=== PATIENT | male | born 1980 | race Caucasian/White ===

== ENCOUNTER 2020-01-28 21:02 | Emergency (ER) | payer BC, OTHER ==
--- NOTE | 2020-01-28 21:45 | EDM.PDOC ---
ED HPI GENERAL MEDICAL PROBLEM - General Stated Complaint: COVID Time Seen by Provider: 01/28/20 21:20 Source of Information: Reports: Patient History Limitations: Reports: No Limitations - History of Present Illness INITIAL COMMENTS - FREE TEXT/NARRATIVE: c/o exposure to COVID pt at a wedding last week, wedding was outside, reception interviewer inside, pt sat next to adult female who tested positive for COVID, pt does not know if she has had sxs, her family ( and 5-6 children) have tested positive as well pt works at [employer] in [place], on [employer] [place] and in close contact with others no children, lives with his father who is 69 yo pt and father are smokers only med is omeprazole qod, denies chronic health issues except cigs no fever or sigs today - Related Data Allergies Allergy/AdvReac Type Severity Reaction Status Date / Time shellfish derived Allergy Unknown unknown Verified 05/13/14 12:04 Home Meds: Home Meds Albuterol Sulfate [Albuterol Sulfate HFA] 1 - 2 puff IH Q2H PRN #1 [id number] 05/13/14 [Rx] Azithromycin [Z-Dayne] 250 mg PO DAILY #6 tablet 05/13/14 [Rx] ED ROS GENERAL - Review of Systems Review Of Systems: See Below Constitutional: Reports: No Symptoms HEENT: Reports: No Symptoms Respiratory: Reports: No Symptoms Cardiovascular: Reports: No Symptoms Endocrine: Reports: No Symptoms GI/Abdominal: Reports: No Symptoms : Reports: No Symptoms Musculoskeletal: Reports: No Symptoms Skin: Reports: No Symptoms Neurological: Reports: No Symptoms Psychiatric: Reports: No Symptoms Hematologic/Lymphatic: Reports: No Symptoms Immunologic: Reports: No Symptoms ED EXAM, GENERAL - Physical Exam Exam: See Below Exam Limited By: No Limitations General Appearance: Alert, WD/WN, No Apparent Distress Eye Exam: Bilateral Eye: Normal Inspection Ears: Normal External Exam, Normal Canal, Hearing Grossly Normal Nose: Normal Inspection, Normal Mucosa, No Blood Throat/Mouth: Normal Inspection, Normal Lips, Normal Teeth, Normal Gums, Normal Oropharynx, Normal Voice, No Airway Compromise Head: Atraumatic, Normocephalic Neck: Normal Inspection, Supple, Non-Tender, Full Range of Motion. No: Lymphadenopathy (R), Lymphadenopathy (L) Respiratory/Chest: No Respiratory Distress, Lungs Clear, Normal Breath Sounds, No Accessory Muscle Use, Chest Non-Tender Cardiovascular: Regular Rate, Rhythm, No Edema, No Gallop, No JVD, No Murmur, No Rub GI/Abdominal: Soft, Non-Tender, No Distention Back Exam: Normal Inspection, Full Range of Motion. No: CVA Tenderness (R), CVA Tenderness (L) Extremities: Normal Inspection, Normal Range of Motion, Non-Tender, No Pedal Edema Neurological: Alert, Oriented, CN II-XII Intact, Normal Cognition, Normal Gait, No Motor/Sensory Deficits Psychiatric: Normal Affect, Normal Mood Skin Exam: Warm, Dry, Intact, Normal Color, No Rash Lymphatic: No Adenopathy Course - Orders/Labs/Meds Orders: Active Orders 24 hr Category Date Time Status CORONAVIRUS COVID-19, [facility] Stat Lab 01/28/20 21:38 Ordered - Re-Assessments/Exams Free Text/Narrative Re-Assessment/Exam: 01/28/20 21:46 PE neg, no sxs, COVID test done, COVID precautions reviewed as per CDC guide lines Departure - Departure Time of Disposition: 21:39 Disposition: Home, Self-Care 01 Condition: Good Clinical Impression: Close exposure to COVID-19 virus - Discharge Information *PRESCRIPTION DRUG MONITORING PROGRAM REVIEWED*: Not Applicable *COPY OF PRESCRIPTION DRUG MONITORING REPORT IN PATIENT VEGA: Not Applicable Instructions: Droplet Precautions, Contact Precautions, Airborne Precautions Referrals: Howard Lawson MD [Primary Care Provider] - Forms: ED Return to Work/School Form Additional Instructions: Self quarantine for one week, longer if your COVID test is positive. Return to work in one week if your COVID test is negative and you are do not have symptoms. Use good handwashing. Maintain 6' social distancing. Wear your mask. Do not touch your eyes or nose or mouth with your hands. Contact Dr Lawson for further instructions if you have symptoms or your COVID test is positive. - My Orders Last 24 Hours: My Active Orders 01/28/20 21:38 CORONAVIRUS COVID-19, MIRIAM Stat - Assessment/Plan Last 24 Hours: My Active Orders 01/28/20 21:38 CORONAVIRUS COVID-19, MIRIAM Stat
== END 2020-01-28 21:55 | disposition home or self-care (01) ==
LOC: FB.ED 21:02
DX: Z20.828 Contact with and (suspected) exposure to other viral communicable diseases (principal); Z91.013 Allergy to seafood
CPT/HCPCS: 99281; 99282; U0002